=== PATIENT | female | born 1955 | race Caucasian/White ===

== ENCOUNTER 2019-01-22 12:04 | Day surgery (SDC) | payer BC, SELFPAY ==
--- NOTE | 2019-01-22 | PATH_ITS ---
[facility] Accession Number: [id number] . 01 Material submitted: . CECAL POLYP . 02 Diagnosis: Cecum, Polyp, Biopsy: Tubular Adenoma. JRL/01/23/2019 . 02 Electronically signed: . Lisa Wasserman MD, Pathologist NPI- [id number] . 01 Gross description: . Received one formalin-filled container labeled with the patient's name and labeled cecal polyp. The specimen consists of a 0.3 cm portion of tissue, entirely submitted in one cassette. ([id number]) /FRR . 02 Pathologist provided ICD-10: D12.0 . 02 CPT . 648988 Performed at: 01 [facility] [place] [address] [id number] MD Samuel Boggs MD Phone: [phone] Performed at: 02 [facility] [place] [address] [place], [place] [id number] MD Lisa Wasserman MD Phone: [phone]
[2019-01-22 12:33] VITALS: BP 135/81; PULSE 63; RESP 16; TEMP 37.1; O2SAT 100; BMI 25.0
[2019-01-22] MEDS: ONDANSETRON 4 MG/2 ML INJ IV (13:24)
--- NOTE | 2019-01-22 13:25 | P.HP_ITS ---
History of Present Illness Date Patient Seen: 01/22/19 Time Patient Seen: 13:23 Chief complaint: [id number] Colonoscopy Narrative: Marisa is a very pleasant 63-year-old lady who is here today for screening colonoscopy. She denies any problems or symptoms related to the function of her GI tract. She does feel that occasionally when she tries to swallow it is slow or feels briefly like maybe it is getting stuck. This happens rarely. She denies any blood in her stool or any unexplained weight loss. Her last colonoscopy was in March of 2007 and she remembers it was normal. Her last study was done in [facility]. She needs a colonoscopy today as part of health maintenance program. Patient History Social History household members: none Family & Social History Social History: household members none Meds Home Medications Medication Instructions Recorded Confirmed Type levothyroxine 88 mcg PO DAILY 01/22/19 01/22/19 History liothyronine 10 mcg PO DAILY 01/22/19 01/22/19 History naproxen [Naprosyn] 500 mg PO BID PRN 01/22/19 01/22/19 History Allergies Allergy/AdvReac Type Severity Reaction Status Date / Time codeine AdvReac Verified 01/22/19 12:22 morphine AdvReac Verified 01/22/19 12:21 nickel based metal Allergy Uncoded 01/22/19 12:22 Review of Systems Review of Systems All systems reviewed & are unremarkable except as noted in HPI and below Exam Vital Signs (past 8 hours): - 01/22/19 12:33 Temperature 98.8 F Pulse Rate 63 Respiratory Rate 16 Blood Pressure 135/81 Pulse Oximetry 100 Oxygen Delivery Method Room Air Narrative Exam Narrative: Pleasant well-nourished well-developed lady in no distress HEENT: Normocephalic and atraumatic, pupils equal round reactive to light accommodation with anicteric sclera lungs: Clear to auscultation bilaterally Heart: Regular rate and rhythm without murmur rub or gallop abdomen: Soft, nontender, active bowel sounds extremities: Warm and well perfused and without edema. Assessment & Plan Assessment & Plan narrative: Wonderful 63-year-old lady here for screening colonoscopy. We discussed the risks and benefits of the procedure the patient expressed a desire to complete it today.
[2019-01-22] MEDS: MIDAZOLAM 5 MG/5 ML VIAL IV (13:40)
[2019-01-22] MEDS: fentaNYL 250 MCG/5 ML INJ IV (13:41)
--- NOTE | 2019-01-22 13:50 | P.OP_ITS ---
Operative Date/Time/Diagnoses Date of procedure: 01/22/19 Time of procedure: 13:48 Pre-op diagnosis: Screening Post-op diagnosis: same Procedure & Clinicians Procedure: Colonoscopy to the cecum with cold forceps polypectomy x1 Same procedure as scheduled: Yes Indications: Last colonoscopy 2006 Surgeon: Evelin Jaramlilo Anesthesia Type: Sedation ( Versed 4 mg; fentanyl 150 mcg) Operative Notes Findings: 1. Excellent prep 2. A single diminutive polyp- approximately 2 mm - in the floor of the cecum. Removed with cold forceps and retained for pathology 3. minimal diverticulosis limited to the sigmoid region 4. otherwise normal mucosa 5. grade 2 internal hemorrhoids Closure Type: not applicable Specimen(s): other Estimated Blood Loss (mL): 1 Procedure in detail: After obtaining informed consent, the patient was brought to the GI suite and placed in the left lateral decubitus position on the e xamination table. After placement of appropriate monitors, the patient was given incremental doses of Versed and Fentanyl until an appropriate level of sedation was achieved. A time out was held per SCOAP protocol. A digital rectal examination was performed and did not reveal any masses or obstructing lesions. The colonoscope was gently passed into the patient's anus and the entire colon navigated to the level of the cecum with minimal difficulty. Once in the cecum, the scope was withdrawn being sure to go before and beyond all mucosal folds and prominences and get an excellent examination. The findings are noted above. At the level of the rectal vault, the scope was retroflexed and the internal anal canal was examined. The scope was straightened and air aspirated from the colon. The instrument was removed from the patient's body and the procedure was concluded. The patient was allowed to awaken from sedation without difficulty and taken to the post-anesthesia care unit in good condition. total sedation time 20 min total withdrawal time 10 min 48 sec Complications: none Condition: stable Disposition: PACU Plan for aftercare: 1. Discharge to home 2. Plan for next colonoscopy in 5 years due to the presence of a small polyp in the cecum 3. We will contact you with final pathology results and any additional recommendations.
--- NOTE | 2019-01-22 13:52 | SUR.PHASEII ---
Bypassed PACU, pt awake on arrival to Phase 2.
[2019-01-22 13:53] VITALS: BP 97/60; PULSE 76; RESP 14; TEMP 36.7; O2SAT 98
[2019-01-22 14:22] VITALS: BP 104/68; PULSE 63; RESP 16; TEMP 36.7; O2SAT 98
== END 2019-01-22 14:31 ==
LOC: ENDO 12:06
PROVIDERS: Visit Provider Surgery
PROC: 0DJD8ZZ Inspection of Lower Intestinal Tract, Via Natural or Artificial Opening Endoscopic (ICD-10-PCS; CPT 45378; principal; 2019-01-22 13:00)
DX: Z12.11 Encounter for screening for malignant neoplasm of colon (principal); K57.30 Diverticulosis of large intestine without perforation or abscess without bleeding; K64.1 Second degree hemorrhoids; D12.0 Benign neoplasm of cecum
CPT/HCPCS: 45380; 99152; J2250; J2405; J3010